=== PATIENT | female | born 1950 | race Caucasian/White ===

== ENCOUNTER 2017-01-09 11:01 | Emergency (ER) | payer MEDICAID ==
[~2017-01-09] VITALS: Ht 162.6 cm; Wt 95.0 kg
[~2017-01-09 11:01] MED LIST: ATOR10TA PO; LISI1TAB7 PO; METF10002 PO; TRAM-28 PO
[2017-01-09] MEDS ORDERED: SODIUM CHLORIDE 0.9% 1,000 ML IV ONE (11:31)
[2017-01-09] MEDS ORDERED: SODIUM CHLORIDE 0.9% 1,000ML IVBOLUS ONE (12:00)
[2017-01-09 12:30] LABS: ASPARTATE AMINO TRANSFERASE 22 U/L (15-37); BLOOD UREA NITROGEN 15 mg/dL (7-18)
[2017-01-09] MEDS ORDERED: ONDANSETRON 2MG/ML, 2ML IVPush ONE (13:30)
[2017-01-09] MEDS ORDERED: MORPHINE SULFATE 4 MG/ML, 1ML IVPush ONE (13:30)
[2017-01-09] MEDS ORDERED: MORPHINE SULFATE 4 MG/ML, 1ML ONE (13:32)
[2017-01-09] MEDS ORDERED: ONDANSETRON 2MG/ML, 2ML ONE (13:32)
[2017-01-09] MEDS ORDERED: OMNIPAQUE 350 MG/ML, 100ML BOTTLE ONE (13:34)
[2017-01-09 15:09] VITALS: BP 123/68
== END 2017-01-09 15:24 | disposition home or self-care (01) ==
LOC: ED 13:58
DX: M54.31 Sciatica, right side (principal); R19.7 Diarrhea, unspecified; I10 Essential (primary) hypertension; E11.9 Type 2 diabetes mellitus without complications
CPT/HCPCS: 36415; 74177; 80053; 81001; 83690; 85025; 87077; 87086; 96361; 96374; 96375; 99285; J2405; J7030; Q9967

== ENCOUNTER 2017-04-10 08:57 | Emergency (ER) | payer MEDICAID ==
[~2017-04-10] VITALS: Ht 165.1 cm; Wt 90.0 kg
[~2017-04-10 08:57] MED LIST changes: -TRAM-28 PO; +TRAM-47 PO
[2017-04-10] MEDS ORDERED: ONDA4TAB10 PO (09:27)
[2017-04-10] MEDS ORDERED: SODIUM CHLORIDE 0.9% 1,000 ML IV ONE (09:57)
[2017-04-10] MEDS ORDERED: SODIUM CHLORIDE 0.9% 1,000ML IVBOLUS ONE (10:00)
[2017-04-10] MEDS ORDERED: MAALOX/HYOSCYAMINE/LIDOCAINE 45 ML BTL PO ONE (10:00)
[2017-04-10] MEDS ORDERED: ONDANSETRON 2MG/ML, 2ML IVPush ONE (10:00)
[2017-04-10] MEDS ORDERED: FAMOTIDINE 20 MG/2 ML IVP ONE (10:00)
[2017-04-10] MEDS ORDERED: MAALOX/HYOSCYAMINE/LIDOCAINE 45 ML BTL ONE (10:23)
[2017-04-10] MEDS ORDERED: ONDANSETRON 2MG/ML, 2ML ONE (10:23)
[2017-04-10] MEDS ORDERED: MORPHINE SULFATE 4 MG/ML, 1ML ONE ×2 (10:23→12:30)
[2017-04-10] MEDS ORDERED: FAMOTIDINE 20 MG/2 ML ONE (10:23)
[2017-04-10] MEDS: MORPHINE SULFATE 4 MG/ML, 1ML IVPush PRN ×2 (10:40→12:42)
[2017-04-10 11:21] LABS: HEMATOCRIT 42.9 % (34.6-47.8); HEMOGLOBIN 14.6 g/dL (11.7-16.4)
[2017-04-10 11:34] LABS: ASPARTATE AMINO TRANSFERASE 30 U/L (15-37); BLOOD UREA NITROGEN 16 mg/dL (7-18)
[2017-04-10] MEDS ORDERED: METRONIDAZOLE PMX 500MG/100ML 100 ML IV ONE (13:00)
[2017-04-10] MEDS ORDERED: CIPROFLOXACIN/PMX 400MG/200ML 200 ML IV ONE (13:00)
[2017-04-10] MEDS ORDERED: CIPROFLOXACIN/PMX 400MG/200ML 200 ML ONE (13:32)
[2017-04-10] MEDS ORDERED: METRONIDAZOLE PMX 500MG/100ML 100 ML ONE (13:32)
[2017-04-10 17:16] VITALS: BP 110/66
== END 2017-04-10 17:19 | disposition home or self-care (01) ==
LOC: ED 09:46
DX: K51.80 Other ulcerative colitis without complications (principal); A09 Infectious gastroenteritis and colitis, unspecified; I10 Essential (primary) hypertension; E11.9 Type 2 diabetes mellitus without complications; Z90.710 Acquired absence of both cervix and uterus; Z87.891 Personal history of nicotine dependence
CPT/HCPCS: 36415; 74177; 80053; 81003; 83605; 83690; 85025; 85610; 87324; 89055; 93005; 96361; 96365; 96366; 96367; 96375; 96376; 99285; J0744; J2405; J7030; S0028